=== PATIENT | male | born 1960 | race Caucasian/White ===

== ENCOUNTER 2020-06-13 22:26 | Observation (INO) | payer BC, SELFPAY ==
[2020-06-13 22:28] VITALS: BP 200/149; PULSE 102; RESP 18; TEMP 36.6; O2SAT 96; BMI 26.0
--- NOTE | 2020-06-13 22:44 | XRR_ITS ---
PROCEDURE INFORMATION: Exam: XR Chest, 1 View Exam date and time: 06/13/2020 10:47 PM Age: 60 years old Clinical indication: Chest pain; Patient HX: PT has numbness on left side of abdomen, leg, and arm x 1 day. Chest discomfort. TECHNIQUE: Imaging protocol: XR of the chest Views: 1 view. COMPARISON: No relevant prior studies available. FINDINGS: Lungs: No consolidation. Pleural space: No pleural effusion. No pneumothorax. Heart/Mediastinum: No cardiomegaly. Bones/joints: Unremarkable. XR/XR chest 1V portable [id number] IMPRESSION: No acute cardiopulmonary disease demonstrated.
--- NOTE | 2020-06-13 22:44 | CTR_ITS ---
PROCEDURE INFORMATION: Exam: CT Head Without Contrast Exam date and time: 06/13/2020 10:56 PM Age: 60 years old Clinical indication: Numbness / parasthesia; Patient HX: Numbness to left side of body. ; Additional info: CVA symptoms TECHNIQUE: Imaging protocol: Computed tomography of the head without contrast. Radiation optimization: All CT scans at this facility use at least one of these dose optimization techniques: automated exposure control; mA and/or kV adjustment per patient size (includes targeted exams where dose is matched to clinical indication); or iterative reconstruction. COMPARISON: No relevant prior studies available. RADIATION DOSE METRICS: Total DLP (mGy-cm): 775.58 FINDINGS: Brain: Mild parenchymal volume loss noted. No significant white matter disease demonstrated. No parenchymal edema identified. No intracranial hemorrhage noted. Cerebral ventricles: The ventricles are proportional to the sulci. No hydrocephalus is noted. Bones/joints: Unremarkable. No acute fracture. Paranasal sinuses: Small air-fluid level left maxillary sinus. Mastoid air cells: The mastoid air cells are clear bilaterally. Soft tissues: The soft tissues appear unremarkable. CT/CT head wo con* [id number] IMPRESSION: 1. No acute intracranial abnormality demonstrated. 2. Small air-fluid level left maxillary sinus. Radiation Dose CTDIVOL = (mGy): DLP = 775.58 (mGy-cm)
--- NOTE | 2020-06-13 22:45 | ECG_ITS ---
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 Measurements Intervals [place] Rate: 101 P: 47 ME: 200 QRS: -55 QRSD: 81 T: 44 QT: 343 QTc: 446 Interpretive Statements SINUS TACHYCARDIA LEFT AXIS DEVIATION [QRS AXIS < -30] No previous ECG available for comparison Electronically Signed On 06-14-2020 8:37:49 PARALEGAL SPECIALIST by Mary Ibrahim M.D. [id number] f
[2020-06-13 22:46] VITALS: PULSE 99; RESP 25; O2SAT 96
[2020-06-13 22:56] LABS: Basophils % 0.4 %; Eosinophils # 0.2 10^3/uL (0.0-0.8); Eosinophils % 2.4 %; Hematocrit 45.8 % (42.0-52.0); Hemoglobin 15.9 g/dL (11.7-16.6); Lymphocytes # 3.1 10^3/uL (0.8-4.8); Mean Corpuscular HGB Conc 34.7 g/dL (30.0-36.0); Mean Corpuscular Hemoglobin 30.5 pg (28.0-34.0); Mean Corpuscular Volume 87.7 fL (80-94); Mean Platelet Volume 9.2 fL (7.4-10.4); Monocytes # 0.6 10^3/uL (0.2-0.9); Monocytes % 7.4 %; Neutrophils # 3.68 10^3/uL (1.8-7.7); Neutrophils % 48.5 %; Nucleated Red Blood Cells % 0 %; Platelet Count 181 10^3/cmm (130-400); Red Blood Count 5.22 10^6/uL (4.1-5.3); Red Cell Distribution Width 12.1 % (12.1-15.1); White Blood Count 7.6 10^3/uL (4.0-10.0)
[2020-06-13] MEDS: ondansetron 2 mg/ML SDV 2 mL 4 MG IVP (23:00)
[2020-06-13] MEDS: sodium chloride 0.9% 1,000 ML 100 ML IV (23:04)
--- NOTE | 2020-06-13 23:08 | ED_ITS ---
HPI - Neuro Symptoms/Deficit General: Chief Complaint: Neuro Symptoms/Deficit Stated Complaint: numbness on left side Time Seen by Provider: 06/13/20 22:36 Source: patient Mode of arrival: ambulatory Limitations: no limitations History of Present Illness: HPI Narrative: Loi is a very nice 60-year-old male who comes in complaining of numbness on the left side of his body that has been present since awakening. Patient states he went to sleep last night in his normal state of health. He denies any chronic medical problems such as hypertension, hyperlipidemia, diabetes or otherwise. He states he woke up and felt numb on his left side specifically his left arm and left side of his abdomen. As the day has gone on he is noticed numbness in his left leg and left face as well. His symptoms have been intermittent except for his left arm and left side which have been constant throughout the day. He denies any weakness, vision problems, trouble with speech, troubles with balance or with walking. Patient denies having anything similar to this in the past. He states at times when he walks he feels like his leg will get less numb but otherwise he denies any other exacerbating or alleviating factors. Patient was concerned he may be having a stroke because of this he came in. Associated symptoms: Deny chest pain, diaphoresis, headache(s), malaise, nausea, syncope, vertigo or vomiting Review of Systems Const: Denies: fever(s), chills, body aches, fatigue, malaise or diaphoresis Eyes: Denies: change in vision, blurry vision, photophobia, eye discomfort, eye discharge, eye redness or yellow eyes ENMT: Denies: throat pain, odynophagia, hoarseness, swelling of lips/tongue, ear or mastoid pain, ear discharge, change in hearing or nasal discharge Card: Denies: chest pain, palpitations, irregular heart rhythm, edema, lightheadedness, syncope, pre-syncope, dyspnea on exertion or orthopnea Resp: Denies: dyspnea, productive cough, non-productive cough, wheezing, hemoptysis or chest congestion GI: Denies: abdominal pain, nausea, vomiting, hematemesis, coffee ground emesis, heartburn, diarrhea, constipation, GI cramping, hematochezia or melena : Denies: flank pain, dysuria, urinary frequency, urinary urgency or hematuria Musc: Denies: neck pain, back pain, extremity pain, extremity swelling, joint pain, joint swelling, joint redness, joint warmth or joint stiffness Skin/Breast: Denies: rash, pruritus, erythema, skin pain or skin tenderness Neuro: Reports: numbness in extremities; Denies: headache(s), weakness in extremities, sensory changes, lack of coordination, difficulty walking, dizziness, vertigo, confusion, Slurred speech present or seizure-like activity Daniel/Lymph: Denies: easy bruising, easy bleeding, petechiae, purpura or enlarged lymph nodes All/Imm: Denies: urticaria, throat swelling, tongue swelling, facial swelling or acute wheezing PFSH ED PFSH: Medical History (Updated 06/14/20 @ 02:32 by Kizzy Wooten MD) No pertinent past medical history Sleep apnea Surgical History (Updated 06/14/20 @ 02:32 by Kizzy Wooten MD) H/O hand surgery H/O knee surgery Family History (Updated 06/13/20 @ 23:21 by Adriana Byrne) Other CAD (coronary artery disease) Lung disease Social History (Updated 06/13/20 @ 23:22 by Adriana Byrne) Smoking and tobacco status: never smoked Alcohol intake: never Substance/Drug Use: never NIH stroke score NIHSS: Level Of Consciousness - 1a: 0 Level Of Consciousness Questions - 1b: Both Correct Level Of Consciousness Commands - 1c: Both Correct Best Gaze - 2: Normal Visual Basilio - 3: No Visual Loss Facial Palsy - 4: Normal Motor Arm Right - 5: No Drift Motor Arm Left - 5: No Drift Motor Leg Right - 6: No Drift Motor Leg Left - 6: No Drift Limb Ataxia - 7: Absent Sensory - 8: Mild To Moderate Loss Best Language - 9: No Aphasia Dysarthia - 10: Normal Extinction And Inattention - 11: 0 Score: Total Score: 1 Physical Exam Const: COMMON NORMALS: no acute distress, patient oriented x3, no limitations and alert GENERAL APPEARANCE: cooperative HENMT: COMMON NORMALS: normocephalic, atraumatic, external ears normal, EAC's normal and Normal external nose present HEAD & SCALP: normal to inspection, normocephalic and atraumatic FACE & SINUS: normal facial exam and face symmetric NOSE: Normal external nose present and Normal nares present EXTERNAL EAR: Yes external ears normal EXTERNAL AUDITORY CANAL: EAC's normal MOUTH: Normal oral and palatal mucosa present, lip normal and tongue normal Eye: COMMON NORMALS: Equal, round and reactive pupils present and conjunctivae normal GENERAL EYE: appearance normal, both eyes and all related structures ALIGNMENT: Yes alignment normal PERIORBITAL: periorbital findings normal EYELID: eyelids normal CONJUNCTIVA: Yes conjunctivae normal SCLERA: sclerae normal PUPIL: Yes Equal, round and reactive pupils present Neck/C-Spine: COMMON NORMALS: full ROM, no lymphadenopathy, supple, no meningeal signs and no JVD GENERAL: Yes normal visual inspection and Yes trachea midline Chest: COMMONS NORMALS: normal inspection of the chest and normal palpation of entire chest wall Resp: COMMON NORMALS: normal respiratory effort, No retractions, No use of accessory muscles and clear to auscultation bilaterally EFFORT & INSPECTION: Yes able to speak in complete sentences and Yes symmetric chest movement AUSCULTATION: clear to auscultation bilaterally, no crackles, no rales, no rhonchi and no wheezes Cardio: COMMON NORMALS: no JVD, regular rate, regular rhythm, S1 normal heart sound present and S2 normal heart sound present RATE: regular rate RHYTHM: regular rhythm HEART SOUNDS: S1 normal heart sound present, S2 normal heart sound present, no click, no gallops, no murmurs and no rubs GI: COMMON NORMALS: Soft to palpation and No hepatosplenomegaly present PALPATION: Yes Soft to palpation, No Tenderness to palpation present (GI), No Guarding due to palpation present (GI), No Rigid due to palpation, Yes No hepatosplenomegaly present, No Hernia present, No Palpable mass present and No Pulsatile mass present : COMMON NORMALS: Yes no CVA tenderness BLADDER/KIDNEY EXAM: Yes no CVA tenderness Back/Pelvis: COMMON NORMALS: no CVA tenderness, thoracic and lumbar spine normal to inspection, no thoracic nor lumbar tenderness and thoraco-lumbar ROM normal Extremity: COMMON NORMALS: normal to inspection, full ROM, capillary refill normal, no joint enlargement, no clubbing, cyanosis or edema and no calf tenderness Neuro: COMMON NORMALS: patient oriented x3, CN's II-XII intact bilaterally, moves all extremities and no focal motor deficits SENSORIUM/ORIENTATION: Yes alert MENINGEAL SIGNS: Yes no meningeal signs SPEECH: speech normal Skin: COMMON NORMALS: no rashes or lesions noted, turgor normal, no jaundice, no petechiae and no mottling GENERAL SKIN EXAM: no rashes or lesions noted and turgor normal Course Vital Signs: Vital signs: Vital Signs Temperature 97.9 F 06/13/20 22:28 Pulse Rate 78 06/14/20 01:30 Respiratory Rate 12 06/14/20 01:30 Blood Pressure 178/98 06/14/20 01:30 Pulse Oximetry 95 06/14/20 01:30 MDM - Neuro Symptoms/Deficit MDM Narrative: Medical decision making narrative: Mr. Vaz is a 60-year-old male who comes in with the complaint of left-sided numbness. His NIH stroke scale is 1. CT is negative. Patient is at high risk for progression of his symptoms. The case was endorsed to Dr. Sears he is agreeable to further evaluation and care. Patient was not a candidate for TPA or intervention due to his low NIH stroke scale and time of presentation. Lab Data: Attestation: I reviewed the patient's lab results. Labs: Lab Results 06/13/20 06/13/20 06/13/20 Range/Units 22:45 22:45 22:45 WBC 7.6 (4.0-10.0) 10^3/ uL RBC 5.22 (4.1-5.3) 10^6/u L Hgb 15.9 (11.7-16.6) g/dL Hct 45.8 (42.0-52.0) % MCV 87.7 (80-94) fL MCH 30.5 (28.0-34.0) pg MCHC 34.7 (30.0-36.0) g/dL RDW 12.1 (12.1-15.1) % Plt Count 181 (130-400) 10^3/c mm MPV 9.2 (7.4-10.4) fL Neut % (Auto) 48.5 % Lymph % (Auto) 41.0 % [place] % (Auto) 7.4 % Eos % (Auto) 2.4 % Baso % (Auto) 0.4 % Neut # (Auto) 3.68 (1.8-7.7) 10^3/u L Lymph # (Auto) 3.1 (0.8-4.8) 10^3/u L [place] # (Auto) 0.6 (0.2-0.9) 10^3/u L Eos # (Auto) 0.2 (0.0-0.8) 10^3/u L Baso # (Auto) 0.0 (0.0-0.1) 10^3/u L Nucleated RBC % (a uto) 0 % Nucleated RBCs # 0.0 /100WBC Sodium 136 (136-145) mmol/L Potassium 3.7 (3.5-5.1) mmol/L Chloride 100 (98-107) mmol/L Carbon Dioxide 26 (22-29) mmol/L Anion Gap 13.7 (5-19) BUN 14 (6-20) mg/dL Creatinine 1.0 (0.7-1.2) mg/dL GFR Calculation 76.5 L (90-130) mL/min Glucose 237 H (65-115) mg/dL Calculated Osmolal ity 290 (285-295) mOsm/k g Calcium 9.5 (8.5-10.5) mg/dL Magnesium 2.1 (1.7-2.3) mg/dL Total Bilirubin 0.7 (0.15-1.2) mg/dL AST 34 (0-40) U/L ALT 62 H (0-41) U/L Alkaline Phosphata se 106 (40-130) IU/L Troponin T Baselin e 9 (0-15) ng/L Troponin T 120 Min [place] (0-15) ng/L Delta Troponin T (0-10) ABS# Total Protein 7.2 (6.6-8.7) g/dL Albumin 4.6 (3.5-5.2) g/dL Globulin 2.6 (1.3-4.6) g/dL Urine Color (Yellow) Urine Appearance (CLEAR) Urine pH (5-7) Ur Specific Gravit y (1.005-1.030) Urine Protein (Negative) Urine Glucose (UA) (Normal) Urine Ketones (Negative) Urine Blood (Negative) Urine Nitrate (Negative) Urine Bilirubin (Negative) Urine Urobilinogen (Negative) mg/dL Ur Leukocyte Irene ase (Negative) 06/14/20 06/14/20 Range/Units 00:12 00:55 WBC (4.0-10.0) 10^3/ uL RBC (4.1-5.3) 10^6/u L Hgb (11.7-16.6) g/dL Hct (42.0-52.0) % MCV (80-94) fL MCH (28.0-34.0) pg MCHC (30.0-36.0) g/dL RDW (12.1-15.1) % Plt Count (130-400) 10^3/c mm MPV (7.4-10.4) fL Neut % (Auto) % Lymph % (Auto) % [place] % (Auto) % Eos % (Auto) % Baso % (Auto) % Neut # (Auto) (1.8-7.7) 10^3/u L Lymph # (Auto) (0.8-4.8) 10^3/u L [place] # (Auto) (0.2-0.9) 10^3/u L Eos # (Auto) (0.0-0.8) 10^3/u L Baso # (Auto) (0.0-0.1) 10^3/u L Nucleated RBC % (a uto) % Nucleated RBCs # /100WBC Sodium (136-145) mmol/L Potassium (3.5-5.1) mmol/L Chloride (98-107) mmol/L Carbon Dioxide (22-29) mmol/L Anion Gap (5-19) BUN (6-20) mg/dL Creatinine (0.7-1.2) mg/dL GFR Calculation (90-130) mL/min Glucose (65-115) mg/dL Calculated Osmolal ity (285-295) mOsm/k g Calcium (8.5-10.5) mg/dL Magnesium (1.7-2.3) mg/dL Total Bilirubin (0.15-1.2) mg/dL AST (0-40) U/L ALT (0-41) U/L Alkaline Phosphata se (40-130) IU/L Troponin T Baselin e (0-15) ng/L Troponin T 120 Min [place] 8.26 (0-15) ng/L Delta Troponin T -0.74 L (0-10) ABS# Total Protein (6.6-8.7) g/dL Albumin (3.5-5.2) g/dL Globulin (1.3-4.6) g/dL Urine Color Yellow (Yellow) Urine Appearance Clear (CLEAR) Urine pH 7 (5-7) Ur Specific Gravit y 1.005 (1.005-1.030) Urine Protein Neg (Negative) Urine Glucose (UA) 4+ H (Normal) Urine Ketones Negative (Negative) Urine Blood Neg (Negative) Urine Nitrate Negative (Negative) Urine Bilirubin Neg (Negative) Urine Urobilinogen Norm (Negative) mg/dL Ur Leukocyte Irene ase Negative (Negative) Imaging Data^: CT Head: Attestation: I personally reviewed and interpreted this imaging study as follows: Radiologist's impression: [address] [address] [address] Scan Report Signed Patient: Miguel Vaz #: [id number] : 1Acct#:[id number] Age/Sex: 60 / MADM Date: 06/13/20 Loc: ERRoom/Bed: Attending Dr: Ordering Provider/Ordering MD: Adriana Byrne DO Date of Service: 06/13/20 Procedure(s): CT head wo con* [id number] Accession Number(s): [id number] Report Number: [id number] PROCEDURE INFORMATION: Exam: CT Head Without Contrast Exam date and time: 06/13/2020 10:56 PM Age: 60 years old Clinical indication: Numbness / parasthesia; Patient HX: Numbness to left side of body. ; Additional info: CVA symptoms TECHNIQUE: Imaging protocol: Computed tomography of the head without contrast. Radiation optimization: All CT scans at this facility use at least one of these dose optimization techniques: automated exposure control; mA and/or kV adjustment per patient size (includes targeted exams where dose is matched to clinical indication); or iterative reconstruction. COMPARISON: No relevant prior studies available. RADIATION DOSE METRICS: Total DLP (mGy-cm): 775.58 FINDINGS: Brain: Mild parenchymal volume loss noted. No significant white matter disease demonstrated. No parenchymal edema identified. No intracranial hemorrhage noted. Cerebral ventricles: The ventricles are proportional to the sulci. No hydrocephalus is noted. Bones/joints: Unremarkable. No acute fracture. Paranasal sinuses: Small air-fluid level left maxillary sinus. Mastoid air cells: The mastoid air cells are clear bilaterally. Soft tissues: The soft tissues appear unremarkable. CT/CT head wo con* [id number] IMPRESSION: 1. No acute intracranial abnormality demonstrated. 2. Small air-fluid level left maxillary sinus. Radiation Dose CTDIVOL = (mGy): DLP = 775.58 (mGy-cm) Dictated By:Vicente Morrissey MD Signed By:Vicente Morrissey MDSigned Date/Time:06/13/202315 DD/ 14 EKG Data^: EKG 1: Attestation: I personally reviewed and interpreted this EKG as follows: EKG interpretation date: 06/14/20 EKG interpretation time: 22:42 Interpretation: Sinus tachycardia 101 beats a minute, left axis deviation, no blocks, normal intervals, no acute ST or T wave changes. EKG 2: Attestation: I personally reviewed and interpreted this EKG as follows: EKG interpretation date: 06/14/20 EKG interpretation time: 00:54 Interpretation: Normal sinus rhythm 70 beats a minute, left axis deviation, no blocks, normal intervals, no acute ST-T wave findings. Discharge Plan Discharge Patient Disposition: Placed in Observation Admit Provider: Kizzy Wooten Clinical Impression: Cerebrovascular accident Qualifiers: CVA mechanism: unspecified Qualified Code(s): I63.9 - Cerebral infarction, unspecified Coding Level of Care Code ED Scheduling Manager for [facility] Fwd Exam Comprehensive
[2020-06-13 23:12] LABS: Alanine Aminotransferase 62 U/L (0-41); Albumin Level 4.6 g/dL (3.5-5.2); Alkaline Phosphatase 106 IU/L (40-130); Anion Gap 13.7 (5-19); Aspartate Amino Transferase 34 U/L (0-40); Blood Urea Nitrogen 14 mg/dL (6-20); Calcium 9.5 mg/dL (8.5-10.5); Carbon Dioxide 26 mmol/L (22-29); Chloride 100 mmol/L (98-107); Globulin 2.6 g/dL (1.3-4.6); Glomerular Filtration Rate 76.5 mL/min (90-130); Glucose 237 mg/dL (65-115); Magnesium 2.1 mg/dL (1.7-2.3); Osmolality Calculated 290 mOsm/kg (285-295); Potassium 3.7 mmol/L (3.5-5.1); Sodium 136 mmol/L (136-145); Total Bilirubin 0.7 mg/dL (0.15-1.2); Total Protein 7.2 g/dL (6.6-8.7)
[2020-06-13 23:14] LABS: Troponin(5th) Baseline 9 ng/L (0-15)
[2020-06-13 23:23] VITALS: BP 188/96; PULSE 82; O2SAT 95
[2020-06-14] VITALS (11 sets, daily range): BP systolic 135–200; BP diastolic 87–103; PULSE 66–79; RESP 11–18; TEMP 36.5–37.1; O2SAT 93–97
[2020-06-14] MEDS: aspirin 325 mg Tablet PO (00:44)
--- NOTE | 2020-06-14 00:45 | ECG_ITS ---
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 Measurements Intervals [place] Rate: 70 P: 39 NE: 179 QRS: -39 QRSD: 104 T: 83 QT: 385 QTc: 418 Interpretive Statements SINUS RHYTHM LEFT AXIS DEVIATION [QRS AXIS < -30] PATTERN CONSISTENT WITH PULMONARY DISEASE NONSPECIFIC T-WAVE ABNORMALITY Compared to ECG 06/13/2020 22:42:40 T-wave abnormality now present Sinus tachycardia no longer present Electronically Signed On 06-14-2020 8:43:28 RAILROAD DESIGN CONSULTANT by Mary Ibrahim M.D. [id number]
[2020-06-14 01:27] LABS: Add Urine Microscopic? NO
[2020-06-14 01:30] LABS: Bilirubin Urine Neg (Negative); Blood Urine Neg (Negative); Glucose Urine UA 4+ (Normal); Ketones Urine Negative (Negative); Leukocyte Esterase Urine Negative (Negative); Nitrate Urine Negative (Negative); Protein Urine Neg (Negative); Specific Gravity, Urine 1.005 (1.005-1.030); Urine Appearance Clear (CLEAR); Urine Color Yellow (Yellow); Urobilinogen Urine Norm (Negative); pH Urine 7 (5-7)
--- NOTE | 2020-06-14 01:39 | CTR_ITS ---
PROCEDURE INFORMATION: Exam: CT Angiography Head With Contrast Exam date and time: 06/14/2020 1:41 AM Age: 60 years old Clinical indication: Weakness; Patient HX: Numbness to left side of body; Additional info: CVA TECHNIQUE: Imaging protocol: Computed tomography angiography of the head with intravenous contrast. 3D rendering (Not supervised by radiologist): MIP and/or 3D reconstructed images were created by the technologist. Radiation optimization: All CT scans at this facility use at least one of these dose optimization techniques: automated exposure control; mA and/or kV adjustment per patient size (includes targeted exams where dose is matched to clinical indication); or iterative reconstruction. Contrast material: OMNI 350; Contrast volume: 95 ml; Contrast route: INTRAVENOUS (IV); COMPARISON: CT head wo con* [id number] 2020-06-13 22:58 RADIATION DOSE METRICS: Total DLP (mGy-cm): 2358.6 FINDINGS: ANTERIOR CIRCULATION: Right internal carotid artery: Unremarkable. Intracranial segment is patent with no significant stenosis. No aneurysm. Right middle cerebral artery: Unremarkable. No occlusion or significant stenosis. No aneurysm. Right anterior cerebral artery: Unremarkable. No occlusion or significant stenosis. No aneurysm. Left internal carotid artery: Unremarkable. Intracranial segment is patent with no significant stenosis. No aneurysm. Left middle cerebral artery: Unremarkable. No occlusion or significant stenosis. No aneurysm. Left anterior cerebral artery: Unremarkable. No occlusion or significant stenosis. No aneurysm. POSTERIOR CIRCULATION: Right vertebral artery: Unremarkable. No occlusion or significant stenosis. No aneurysm. Left vertebral artery: Unremarkable. No occlusion or significant stenosis. No aneurysm. Basilar artery: Unremarkable. No occlusion or significant stenosis. No aneurysm. Right posterior cerebral artery: Unremarkable. No occlusion or significant stenosis. No aneurysm. Left posterior cerebral artery: Unremarkable. No occlusion or significant stenosis. No aneurysm. Brain: No definite mass, mass effect, or midline shift. Cerebral ventricles: No ventriculomegaly. Paranasal sinuses: Mild scattered paranasal sinus mucosal thickening and secretions. Bones/joints: Unremarkable. No acute fracture. Soft tissues: Unremarkable. IMPRESSION: No large vessel stenosis or occlusion. PROCEDURE INFORMATION: Exam: CT Angiography Neck With Contrast Exam date and time: 06/14/2020 1:41 AM Age: 60 years old Clinical indication: Weakness; Patient HX: Numbness to left side of body; Additional info: CVA TECHNIQUE: Imaging protocol: Computed tomography angiography of the neck with intravenous contrast. 3D rendering (Not supervised by radiologist): MIP and/or 3D reconstructed images were created by the technologist. Radiation optimization: All CT scans at this facility use at least one of these dose optimization techniques: automated exposure control; mA and/or kV adjustment per patient size (includes targeted exams where dose is matched to clinical indication); or iterative reconstruction. Contrast material: OMNI 350; Contrast volume: 95 ml; Contrast route: INTRAVENOUS (IV); COMPARISON: CT head wo con* [id number] 2020-06-13 22:58 RADIATION DOSE METRICS: Total DLP (mGy-cm): 2358.6 FINDINGS: Right common carotid artery: Mild atherosclerotic plaque in the predominately distal right common carotid artery and the bifurcation. Right internal carotid artery: Mild atherosclerotic plaque in the carotid bulb and proximal right internal carotid artery with less than 50% stenosis by NASCET criteria. Right external carotid artery: No occlusion or stenosis of the origin. Right vertebral artery: No stenosis. No dissection or occlusion. Left common carotid artery: Mild atherosclerotic plaque in the predominately distal left common carotid artery and the bifurcation. Left internal carotid artery: Mild atherosclerotic plaque in the proximal left internal carotid artery and carotid bulb with less than 50% stenosis by NASCET criteria. Left external carotid artery: No occlusion or stenosis of the origin. Left vertebral artery: No stenosis. No dissection or occlusion. Bones/joints: Prominent degenerative disc and joint disease within the cervical spine with C3-C4 moderate central disc extrusion, and C4-C7 multilevel disc osteophyte complexes with moderate to severe stenosis. Soft tissues: Normal. No significant soft tissue swelling. CT/CT angio headneck* [id number] IMPRESSION: 1. Mild bilateral proximal ICA atherosclerotic disease with less than 50% stenosis. 2. Prominent degenerative disc and joint disease within the cervical spine with C3-C4 moderate central disc extrusion, and C4-C7 multilevel disc osteophyte complexes with moderate to severe stenosis. REFERENCES: NASCET CRITERIA. The degree of internal carotid artery stenosis is based on NASCET criteria. Normal is no stenosis. Mild is less than 50% stenosis. Moderate is 50-69% stenosis. Severe is 70% to 99% stenosis. Total occlusion is no detectable patent lumen. Radiation Dose CTDIVOL = (mGy): DLP = 2358.6~2358.6 (mGy-cm)
--- NOTE | 2020-06-14 01:40 | P.HP_ITS ---
Providers/Chief Complaint Chief Complaint: numbness on left side History of Present Illness Loi Vaz is a 60 year old male without significant past medical history presented with chief complaint of numbness. Patient is stating that he went to sleep without any symptoms and when he woke up around 6 AM he started experiencing numbness left side of his abdomen, which progressed towards his arm left side of the face and leg, it persisted until this evening when he decided to come to the hospital for further evaluation. He is denying chest pain, shortness of breath, fever, nausea, vomiting, dysuria previous history of stroke, [place], heart failure. No family history of stroke. He is only describing symptoms as numbness, he did not notice any weakness slurring of speech facial asymmetry, falls change in his gait, dizziness. Diagnosis in the ER revealed hypertension, CT head unremarkable, I have requested CTA head and neck NIH score 1 for paresthesias of left arm, chest x-ray unremarkable CBC BMP unremarkable requested B12 level EKG showing sinus rhythm left axis deviation, LVH Review of Systems Const: Denies: fever(s) or chills Eyes: Denies: change in vision ENMT: Denies: throat pain Card: Denies: chest pain Resp: Denies: dyspnea GI: Denies: abdominal pain : Denies: flank pain Musc: Denies: neck pain Skin/Breast: Denies: rash Neuro: Reports: sensory changes Psych: Denies: anxiety Endo: Denies: polyuria Daniel/Lymph: Denies: easy bruising All/Imm: Denies: urticaria Medications/Allergies Allergies Allergy/AdvReac Type Severity Reaction Status Date / Time No Known Allergies Allergy Verified 06/14/20 00:42 PFSH Acute PFSH: Medical History (Updated 06/14/20 @ 02:32 by Kizzy Wooten MD) No pertinent past medical history Sleep apnea Surgical History (Updated 06/14/20 @ 02:32 by Kizzy Wooten MD) H/O hand surgery H/O knee surgery Family History (Updated 06/13/20 @ 23:21 by Adriana Byrne) Other CAD (coronary artery disease) Lung disease Social History (Updated 06/13/20 @ 23:22 by Adriana Byrne) Smoking and tobacco status: never smoked Alcohol intake: never Substance/Drug Use: never Vitals/I&O/Wt Last Vital Signs Temp 97.9 F 06/13/20 22:28 Pulse 78 06/14/20 01:30 Resp 12 06/14/20 01:30 BP 178/98 06/14/20 01:30 Pulse Ox 95 06/14/20 01:30 Weight last 48 hrs Weight 84.822 kg Physical Exam Narrative: EXAM NARRATIVE: Pleasant middle-age male Currently laying comfortably in his bed NIH score 1 for paresthesia of left arm No facial asymmetry no cerebellar signs No neurological deficit Motor strength 4/5 all extremities EOMI, PERRLA S1, S2 sinus rhythm No signs of heart failure Abdomen soft distended bowel sound present No acute restaurant distress bilateral breath sounds without adventitious rhonchi or crackles Appropriate mood and affect Supple neck, no carotid bruit noted, Lower extremity no edema gangrene ulcer No skin ulcers Data : 06/13/20 22:45 06/13/20 22:45 A&P Assessment and plan (1) TIA (transient ischemic attack): TIA, ABCD2 score 3 because of duration of symptoms he is scoring high No history of diabetes, currently blood pressure is 178/98 mmHg, allow permissive hypertension Dual antiplatelet therapy along high-dose statins, awaiting CTA head and neck results, CT head unremarkable EKG is not showing any atrial fibrillation or atrial flutter, sinus rhythm Dual antiplatelet therapy for at least 21 days, follow-up with PCP and neurologist No need of speech evaluation or physical therapy because of low NIH score only symptoms of paresthesia, would obtain lipid panel Status: Acute Additional A&P Information Sleep apnea: Continue CPAP Full code Cardiac diet DVT prophylaxis Lovenox Attestations Medical Necessity Statement*: Anticipating discharge in in less than 48 hours, awaiting CTA head and neck report, started on dual antibiotic therapy for TIA Time Spent in Patient Care: (>than 50% of time spent in counselling and/or direct pt care on unit) . 45mins Coding Level of Care Code Acute Supervisor Waterproofing for Moi Tellez Diagnoses TIA (transient ischemic attack) G45.9
[2020-06-14 01:45] LABS: Troponin 5 2HR 8.26 ng/L (0-15)
[2020-06-14 01:47] LABS: Troponin 5 2HR Delta -0.74 ABS# (0-10)
[2020-06-14] MEDS: iohexol 350 mg/mL 100 mL Btl IV (01:54)
[2020-06-14] MEDS: enoxaparin 40 mg/0.4 mL Syringe SUBCUT (03:32)
--- NOTE | 2020-06-14 04:45 | ECG_ITS ---
[facility] Test Date: 2020-06-14 Pat Name: Loi Vaz Department: Room: 276 Gender: Male Dance Entertainer: CANDIS : 1960 Requested By: Adriana Quinones Order Number: [id number] Jessica MD: Mary Ibrahim M.D. Measurements Intervals [place] Rate: 68 P: 28 MN: 190 QRS: -31 QRSD: 87 T: 76 QT: 405 QTc: 431 Interpretive Statements SINUS RHYTHM MARKED LEFT AXIS DEVIATION [QRS AXIS < -30] NONSPECIFIC T-WAVE ABNORMALITY Compared to ECG 06/14/2020 00:54:01 No significant changes Electronically Signed On 06-14-2020 8:42:30 PLANNING INTERN by Mary Ibrahim M.D. [id number]
[2020-06-14] MEDS: clopidogrel 75 mg Tablet PO (08:50)
[2020-06-14] MEDS: aspirin 81 mg EC Tablet PO (08:50)
--- NOTE | 2020-06-14 09:38 | USCV_ITS ---
Loi Vaz Age: 60 Gender: M : 1960 Exam Date: 06/14/2020 15:00 Ordering Phys: Sukhjinder Douglas MD Technologist: Bree Morin [place]am Location[place] [facility] [place] Indication: Sroke like symptoms BP: 151 / 93 HR: 75 Rhythm: Sinus Technical Quality: Adequate MEASUREMENTS (Male / Female) Normal Values 2D ECHO LV Diastolic Diameter PLAX 4.4 cm 4.2 - 5.9 / 3.9 - 5.3 cm LV Systolic Diameter PLAX 2.3 cm IVS Diastolic Thickness 1.1 cm 0.6 - 1.0 / 0.6 - 0.9 cm IVS Systolic Thickness 2.0 cm LVPW Diastolic Thickness 1.3 cm 0.6 - 1.0 / 0.6 - 0.9 cm LVPW Systolic Thickness 2.0 cm LVOT Diameter 2.1 cm LV Ejection Fraction 2D Teich 79.2 % LV Ejection Fraction MOD 2C 74.7 % LV Ejection Fraction 2C AL 80.7 % LA Diameter 3.8 cm LA Width 2.5 cm LA Height 4.8 cm RA Width 3.1 cm RA Height 4.0 cm Aorta at Sinotubular Diameter 2.9 cm M-MODE LV Diastolic Diameter MM 5.0 cm 4.2 - 5.9 / 3.9 - 5.3 cm LV Systolic Diameter MM 3.0 cm LV Ejection Fraction MM Teich 71.4 % IVS Diastolic Thickness MM 0.8 cm 0.6 - 1.0 / 0.6 - 0.9 cm IVS Systolic Thickness MM 1.6 cm LVPW Diastolic Thickness MM 1.2 cm 0.6 - 1.0 / 0.6 - 0.9 cm LVPW Systolic Thickness MM 2.0 cm Aortic Annulus Diameter 3.1 cm LA Ao Ratio MM 1.2 MV E Point Septal Separation 0.4 cm DOPPLER AV Peak Velocity 92.0 cm/s LVOT Peak Velocity 75.0 cm/s AV Area Cont Eq vti 3.5 cm squared AV Area Cont Eq pk 2.8 cm squared MV Peak Velocity 94.0 cm/s MV Area PHT 2.9 cm squared Mitral E to A Ratio 0.5 MV E' Velocity 27.5 cm/s Mitral E to MV E' Ratio 7.3 Mitral E to LV E' Lateral Ratio 5.9 Mitral E to LV E' Septal Ratio 9.5 TR Peak Velocity 63.0 cm/s TR Peak Gradient 1.6 mmHg Right Atrial Pressure 3.0 mmHg Pulmonary Artery Systolic Pressu 4.6 mmHg PV Peak Velocity 101.0 cm/s RV Acceleration Time 0.1 s RV Ejection Time 0.2 s RV AcT/ET 0.3 FINDINGS Left Ventricle Normal left ventricular size, systolic function and wall thickness, with no regional wall motion abnormalities. Left ventricular ejection fraction is estimated at 60 %. Grade I diastolic dysfunction (abnormal relaxation filling pattern), normal to mildly elevated filling pressures. Right Ventricle Normal right ventricular size and systolic function. Right ventricular systolic pressure 4.6 mmHg. Right Atrium Normal right atrial size. Left Atrium Normal left atrial size. Mitral Valve Structurally normal mitral valve. No mitral valve stenosis. Trace mitral valve regurgitation. Aortic Valve Structurally normal trileaflet aortic valve. No aortic valve stenosis. No aortic valve regurgitation. Tricuspid Valve Structurally normal tricuspid valve. No tricuspid valve stenosis. Trace tricuspid valve regurgitation. Pulmonic Valve Pulmonic valve not well visualized. No pulmonary valve stenosis. Trace pulmonary valve regurgitation. Pericardium No pericardial effusion. Aorta Normal size aortic root and proximal ascending aorta. CONCLUSIONS 1. Normal left ventricular size, systolic function and wall thickness, with no regional wall motion abnormalities. Left ventricular ejection fraction is estimated at 60 %. Grade I diastolic dysfunction (abnormal relaxation filling pattern), normal to mildly elevated filling pressures. 2. Normal right ventricular size and systolic function. 3. No significant valvular abnormality. 4. There is no cardioembolic source of stroke, however complete assessment of left atrium and left atrial appendage cannot be made based on this study. NIKKY is recommended if clinically indicated. Mary Ibrahim MD (Electronically Signed) Final Date: 14 June 2020 19:12 S
[2020-06-14 11:20] LABS: Estmated Average Glucose 180; Hemoglobin A1C 7.9 % (4.0-6.0)
--- NOTE | 2020-06-14 11:34 | PM.PN ---
Subjective Subjective: Interval history: Patient reports that he continues to have left-sided numbness but denies any motor deficit. Denies previous history of heart disease or stroke. Denies being diabetic. Reports taking aspirin occasionally for headaches. Patient denies heart palpitations. Vitals/I&O/Wt Last Vital Signs Temp 98.8 F 06/14/20 07:34 Pulse 69 06/14/20 07:34 Resp 18 06/14/20 07:34 BP 151/93 06/14/20 07:34 Pulse Ox 95 06/14/20 07:34 06/13/20 06/14/20 06/14/20 22:59 06:59 14:59 Intake Total 240 / 240 Output Total 525 / 525 475 / 475 Balance -525 / -525 -235 / -235 Weight last 48 hrs Weight 84.822 kg Physical Exam Const: COMMON NORMALS: no acute distress and patient oriented x3 Resp: COMMON NORMALS: normal respiratory effort and clear to auscultation bilaterally AUSCULTATION: clear to auscultation bilaterally Cardio: COMMON NORMALS: regular rate, regular rhythm and S2 normal heart sound present RATE: regular rate RHYTHM: regular rhythm HEART SOUNDS: S2 normal heart sound present OTHER: No lower extremity edema GI: COMMON NORMALS: Normal to inspection, nondistended, normoactive bowel sounds present, Soft to palpation and non-tender PALPATION: Yes Soft to palpation Neuro: COMMON NORMALS: patient oriented x3 and no focal motor deficits Data : 06/13/20 22:45 06/13/20 22:45 A&P Assessment and plan (1) TIA (transient ischemic attack): TIA, ABCD2 score 3 because of duration of symptoms he is scoring high No history of diabetes, currently blood pressure is 178/98 mmHg, allow permissive hypertension Dual antiplatelet therapy along high-dose statins, awaiting CTA head and neck results, CT head unremarkable EKG is not showing any atrial fibrillation or atrial flutter, sinus rhythm Dual antiplatelet therapy for at least 21 days, follow-up with PCP and neurologist No need of speech evaluation or physical therapy because of low NIH score only symptoms of paresthesia, would obtain lipid panel Status: Acute (2) Cervical radiculopathy due to degenerative joint disease of spine: This appears to be likely the cause of patient's symptoms although TIA cannot be completely ruled out. Status: Acute Additional A&P Information Sleep apnea: Continue CPAP Full code Cardiac diet DVT prophylaxis Lovenox PLAN: We will continue statin and aspirin but discontinue Plavix. Discussed with Dr. Bennett, orthopedic surgeon and he will see patient on Tuesday in his office. Have requested echocardiogram for further stroke evaluation. Attestations Medical Necessity Statement*: Patient with strokelike symptoms requires observation for monitoring, treatment and evaluation. Coding Level of Care Code Acute Endocrinology Specialist for Jorge Lg Latashad Diagnoses TIA (transient ischemic attack) G45.9 Cervical radiculopathy due to degenerative joint disease of spine M47.22
[2020-06-14 11:36] LABS: Chol HDL Ratio 6.68 mg/dL (1.0-5.00); Cholesterol 227 mg/dL (0-200); HDL Cholesterol 34 mg/dL (60-100); LDL Cholesterol Calculated 157 mg/dL (50-129); LDL HDL Ratio 4.62 RATIO (0.00-3.22); Triglycerides 182 mg/dL (0-150); Vitamin B12 529 pg/mL (232-1245)
--- NOTE | 2020-06-14 13:17 | PC.CHAP ---
Pastoral Care Encounter/Spiritual Assessment Type of Contact [] Declined pulpwood contractor visit [] Patient/Family/Request visit [] Outpatient visit [] Follow-up visit [] Physician referral [] Code/Alert [X] Routine visit [] Staff referral [] Actively dying [] Patient sleeping [] Family support [] [] Out of room [] Palliative care [] [] Receiving care in room [] Pre-surgical visit [] Trauma [] Long length of stay [] ICU visit [] Other: Relational/Emotional Strength [X] Patient feels connected with others/family/visitors/staff [] Distress [] Loneliness/isolation [] Abandonment Spirituality of Patient [] Person of Laura [] Attends Jew of their Laura [X] Believes in Prayer [] Reads Bible or Jew materials [] There are Spiritual issues to be addressed Certified Appliance Service Technician Interventions [X] Prayer [X] Active listening [] Non-anxious presence [] Spiritual/emotional support [] Crisis/trauma care [] Spiritual counseling [] Bereavement support [] Provided bereavement packet [] Provided Bible/devotional materials [] Provided toy/stuffed animal, coloring book to patient or family member [] Provided Communion [] Anointing/[place] [] Salvation [X] Completed spiritual assessment [] Other: Impact on Illness or Injury [] Angry [] Fearful [] Anxious [] Often cries [] Exhaustion [] Unable to work [] Unable to attend muslim [] Unable to walk/stand [] Unable to read [] Unable to drive [] Unable to eat/drink [] Unable to sleep [] Unable to be with family [] Patient intubated [] Other: Summary: Pt was pleasant and willing to visit but yet also somewhat reserved. Pt lives with his mother who plans to visit this afternoon. Pt accepted the offer of prayer. Time spent with patient: 5 - 10 mins
[2020-06-14] MEDS: atorvastatin 40 mg Tablet 80 MG PO (20:41)
[2020-06-15 04:00] VITALS: BP 155/99; PULSE 63; RESP 18; TEMP 36.8; O2SAT 95
[2020-06-15] MEDS: enoxaparin 40 mg/0.4 mL Syringe SUBCUT (04:03)
[2020-06-15 06:00] VITALS: PULSE 73
[2020-06-15 07:37] VITALS: BP 150/89; PULSE 60; RESP 20; TEMP 36.4; O2SAT 96
--- NOTE | 2020-06-15 08:30 | P.DS_ITS ---
Discharge Providers Date of Admission: 06/14/20 01:43 Date of Discharge: June 15, 2020 Attending Provider at Admission: Kizzy Wooten MD Attending Provider at Discharge: Sukhjinder Douglas MD Diagnoses at Discharge Discharge Diagnosis (1) TIA (transient ischemic attack): Status: Acute (2) Cervical radiculopathy due to degenerative joint disease of spine: Status: Acute Reason for Visit Reason for Visit: numbness on left side Hospital Course Hospital Course Patient presented with left-sided numbness and initially cerebrovascular accident was suspected and patient was further evaluated. His CT scan of the neck showed significant degenerative disc/joint disease with osteophyte complexes with moderate to severe stenosis. This felt likely to be the cause of patient's sensory deficit and I have discussed case with his Dr. Bennett who will see patient this coming Tuesday. Cerebrovascular accident cannot be completely ruled out therefore patient was started on 81 mg aspirin and statin. He had very mild bilateral proximal ICA atherosclerotic disease with less than 50% stenosis. Outpatient follow-up with Dr. Xavier will be requested. Patient was not interested in event monitor and reports that he will discuss with his primary care physician about it. This morning patient reports not worse to better . He shows no evidence of focal motor neurological deficit. His all extremities are very strong. He ambulates without any difficulty. He feels strong enough to be dismissed home. He denies shortness of breath or chest pain. Appetite and oral intake are good. Physical Exam Const: COMMON NORMALS: no acute distress and patient oriented x3 Resp: COMMON NORMALS: normal respiratory effort and clear to auscultation bilaterally AUSCULTATION: clear to auscultation bilaterally Cardio: COMMON NORMALS: regular rate, regular rhythm and S2 normal heart sound present RATE: regular rate RHYTHM: regular rhythm HEART SOUNDS: S2 normal heart sound present OTHER: No lower extremity edema GI: COMMON NORMALS: Normal to inspection, nondistended, normoactive bowel sounds present, Soft to palpation and non-tender PALPATION: Yes Soft to palpation Neuro: COMMON NORMALS: patient oriented x3 and no focal motor deficits Discharge Data Data Completed and Pending: Completed Studies During Hospitalization Category Date Time Status CT angio headneck * [id number] Urge nt Cat Scan 06/14/20 01:[address] head wo con* 7 0450 Stat Cat Scan 06/13/20 22:44 Completed XR chest 1V wendy ble [id number] Stat Exams 06/13/20 22:44 Completed CV echo complete* [id number] Routine Ultrasound 06/14/20 09:38 Completed Labs from last 24 hours 06/13/20 06/13/20 22:45 22:45 Estimat Average Gl ucose 180 Hemoglobin A1c 7.9 H Triglycerides 182 H Cholesterol 227 H LDL Cholesterol, C alc 157 H HDL Cholesterol 34 L LDL/HDL Ratio 4.62 H Cholesterol/HDL Ra yesi 6.68 H Vitamin B12 529 Vitals: Last Vital Signs Temp 97.5 F L 06/15/20 07:37 Pulse 60 06/15/20 07:37 Resp 20 H 06/15/20 07:37 BP 150/89 06/15/20 07:37 Pulse Ox 96 06/15/20 07:37 Discharge Plan Discharge Patient Disposition: Home Condition: Stable Prescriptions: New aspirin 81 mg Tablet,Delayed Release (Dr/Ec) 81 mg PO DAILY Qty: 30 RF: 0 atorvastatin 40 mg Tablet 40 mg PO BEDTIME Qty: 30 RF: 0 Continued Benadryl 25 mg Capsule 25 mg PO Q6H PRN (Reason: Allergy Symptoms) RF: 0 Claritin 10 mg Tablet 10 mg PO DAILY PRN (Reason: Allergy Symptoms) RF: 0 Discharge Orders: Discharge Order (Routine); Ordered 06/15/20 Ordered By: Sukhjinder Douglas Referrals: Naida Xavier MD [Physician] - 1 week Ryland Bennett DO [Physician] - 1-3 days (This coming Tuesday.) Discharge Diet: Usual diet Discharge Activity: Increase activity as tolerated Activity Restrictions/Additional Instructions: Please call your doctor or present to emergency department if your condition worsens or you develop diarrhea, lightheadedness, fatigue or see blood in your stool or black stool. Please discuss with your doctor to consider 30-day event monitor as we have discussed. Please follow-up with Dr. Xavier for further evaluation and treatment. Please call Dr. Bennett's office on Tuesday to set up an appointment for Tuesday. Dr. Bennett is aware and was planning to see you on Tuesday. Discharge Attestations Time Spent in Discharge Care*: greater than 30 min Quality Metrics Clinical Quality Measures During this hospital stay, did patient experience: Stroke Contraindication to Antithrombotic: Antithrombotic prescribed Contraindication to Anticoagulation: Other Contraindication to Statin: Statin prescribed Coding Level of Care Code Acute Bpm Architect for g Fwd Diagnoses TIA (transient ischemic attack) G45.9 Cervical radiculopathy due to degenerative joint disease of spine M47.22
[2020-06-15] MEDS: aspirin 81 mg EC Tablet PO (08:57)
--- NOTE | 2020-06-15 10:29 | PC.NURSE ---
Prescriptions called to [facility].
[2020-06-15 10:55] VITALS: BP 150/89; PULSE 60; RESP 20; TEMP 36.4; O2SAT 96
== END 2020-06-15 10:56 | disposition home or self-care (01) ==
LOC: ER 22:44 → MEDSURG 06-14 02:12
PROVIDERS: Admitting Provider Internal Medicine; Emergency Provider Emergency Medicine; Visit Provider Internal Medicine
DX: G45.9 Transient cerebral ischemic attack, unspecified (principal); M47.22 Other spondylosis with radiculopathy, cervical region; Z82.49 Family history of ischemic heart disease and other diseases of the circulatory system
CPT/HCPCS: 12345; 70450; 70496; 70498; 71045; 80053; 80061; 81003; 82607; 83036; 83735; 84484; 85025; 93005; 93306; 96372; 96374; 99283; 99285; G0378; J1650; J2405; J7030; Q9967

== ENCOUNTER 2020-06-26 08:22 | Outpatient (CLI) | payer BC, SELFPAY ==
--- NOTE | 2020-06-26 08:45 | MR_ITS ---
WS: [id number] MRI THORACIC SPINE WITHOUT CONTRAST TECHNIQUE: Sagittal T1, T2 and STIR imaging. Axial T2 imaging. Noncontrast imaging obtained. CLINICAL INFORMATION: M54.9 - Dorsalgia, unspecified COMPARISON: None. FINDINGS: Mild thoracic kyphosis. No acute compression. No high-grade central canal narrowing. Cord signal is n ormal. Normal CSF pulsation artifact in the spinal canal. Tiny right pericentral protrusion T7-T8. Tiny left pericentral protrusion T9-T10. No significant cent ral canal stenosis. Moderate facet arthropathy in the lower thoracic spine. Normal visualized thoraci c aorta. Adrenal glands are normal. MR/MR thoracic spin wo con* [id number] IMPRESSION: 1. Mild thoracic kyphosis. No acute compression. No high-grade central canal s tenosis. 2. Minimal chronic anterior wedging in the mid thoracic spine at T7 and T9. 3. Tiny right pericentral protrusion T7-T8 and tiny left pericentral protrusio n at T9-T10 without significant spinal canal narrowing. 4. Moderate facet arthropathy in the lower thoracic spine. 5. Mild left T9-T10 and right T10-T11 foraminal narrowing.
--- NOTE | 2020-06-26 09:30 | MR_ITS ---
WS: [id number] MRI CERVICAL SPINE NONCONTRAST TECHNIQUE: Sagittal T1, T2 and STIR imaging. Axial T2, gradient, and fiesta imaging. CLINICAL INFORMATION: M47.22 - Other spondylosis with radiculopathy, cervical region COMPARISON: None. FINDINGS: Straightening of the normal cervical lordosis. Cord signal is normal. Mild disc osteophyte complexes at C4-C6. C2-C3: Asymmetric moderate right facet arthropathy. Mild bilateral foraminal narrowing. Spinal canal is patent. C3-C4: Disc osteophyte complex with tiny central protrusion. Mild central canal stenosis. Slight cont act of the cervical cord. Moderate left and mild right bony foraminal narrowing. C4-C5: Disc osteophyte complex with a tiny central shallow protrusion. Mild left foraminal narrowing. Moderate facet arthropathy. Mild central canal stenosis. C5-C6: Disc osteophyte complex with endplate ridging. Shallow left pericentral disc osteophyte protru louise with mild to moderate central canal stenosis. Slight contact of the cervical cord. Severe left a nd moderate right bony foraminal narrowing. C6-C7: Disc osteophytic ridging. Mild central canal stenosis. Moderate bilateral bony foraminal narro wing. C7-T1: Spinal canal and foramen are patent. Visualized brain stem structures: Normal. Prevertebral soft tissues: Normal. MR/MR cervical spin wo con* [id number] IMPRESSION: 1. Straightening of the normal cervical lordosis. Cord signal is normal. 2. Mild to moderate central canal stenosis due to small disc osteophyte comple xes at C3-C4, C4-C5, C5-C6 and C6-C7. This is worse at C5-C6. 3. Left pericentral disc osteophyte protrusion C5-C6 with slight impingement o n the left ventral cervical cord with severe left bony foraminal narrowing. Rec ommend correlation for left C6 nerve root symptoms. 4. Otherwise mild to moderate bony foraminal left C3-C4, left C4-C5, and bilat eral C6-7.
== END 2020-06-26 08:23 | disposition home or self-care (01) ==
LOC: RADSHAW 08:24
PROVIDERS: PCP Internal Medicine; Visit Provider Orthopaedic Surgery
DX: M47.22 Other spondylosis with radiculopathy, cervical region (principal); M25.78 Osteophyte, vertebrae; M48.02 Spinal stenosis, cervical region; M40.294 Other kyphosis, thoracic region; M48.54XA Collapsed vertebra, not elsewhere classified, thoracic region, initial encounter for fracture; M51.24 Other intervertebral disc displacement, thoracic region; M47.814 Spondylosis without myelopathy or radiculopathy, thoracic region
CPT/HCPCS: 72141; 72146

== ENCOUNTER → 2020-07-07 09:29 | Outpatient (BNVA) | payer BC, SELFPAY | PROVIDERS: PCP Internal Medicine; Visit Provider Nurse Practitioner | DX: R29.90 Unspecified symptoms and signs involving the nervous system (principal); I99.8 Other disorder of circulatory system; M47.22 Other spondylosis with radiculopathy, cervical region | CPT/HCPCS: 99205 ==

== ENCOUNTER → 2020-07-10 08:44 | Outpatient (BNVA) | payer BC, SELFPAY | PROVIDERS: PCP Internal Medicine; Visit Provider Anesthesiology Pain Medicine | DX: M47.22 Other spondylosis with radiculopathy, cervical region (principal); M47.812 Spondylosis without myelopathy or radiculopathy, cervical region; M51.9 Unspecified thoracic, thoracolumbar and lumbosacral intervertebral disc disorder; M54.9 Dorsalgia, unspecified | CPT/HCPCS: 99205 ==

== ENCOUNTER 2020-07-23 07:55 | Outpatient (CLI) | payer BC, SELFPAY ==
--- NOTE | 2020-07-23 08:00 | MR_ITS ---
WS: [id number] MRI HEAD WITH CONTRAST TECHNIQUE: Sagittal T1, T2 axial, T2 axial FLAIR, axial susceptibility weighted imaging, axial diffus ion weighted images, and coronal T2 images were obtained. Pre and post-T1 axial and post T1 coronal i mages. ADC and FSPGR images. CLINICAL INFORMATION: I63.9 - Cerebral infarction, unspecified COMPARISON: CT June 13, 2020 FINDINGS: No evidence of restricted diffusion to suggest acute ischemia. Ventricular system and basal cisterns are patent. Mild parenchymal volume loss. Normal posterior fossa. Normal vascular flow voids at the skull base. No extra-axial fluid collections. No evidence of mass or mass effect. Multiple tiny chron ic appearing lacunar infarcts involving the right thalamus. Retention cysts maxillary sinuses. Mild mucosal thickening left maxillary sinus. No hemosiderin on susceptibly weighted images. No abnormal gadolinium enhancement. Normal optic chias m and pituitary infundibulum. Normal dural venous sinuses. Normal cavernous sinuses and Meckel's cave . Mild symmetric atrophy involving the temporal lobes and hippocampal formations. MR/MR head wo/w con [id number] IMPRESSION: 1. No evidence of restricted diffusion to suggest acute ischemia. 2. Tiny lacunar infarcts involving the right thalamus. 3. Mild parenchymal volume loss. 4. Retention cysts in the maxillary sinuses. Mucosal thickening left maxillary sinus. 5. No hemosiderin on susceptibly weighted images. 6. No abnormal gadolinium enhancement.
== END 2020-07-23 07:56 | disposition home or self-care (01) ==
LOC: RADSHAW 07:57
PROVIDERS: PCP Internal Medicine; Visit Provider Nurse Practitioner
DX: I63.9 Cerebral infarction, unspecified (principal); M27.40 Unspecified cyst of jaw; I63.81 Other cerebral infarction due to occlusion or stenosis of small artery
CPT/HCPCS: 70553; A9579

== ENCOUNTER → 2020-07-29 10:19 | Outpatient (BNVA) | payer BC, SELFPAY | PROVIDERS: PCP Internal Medicine; Visit Provider Nurse Practitioner | DX: R20.0 Anesthesia of skin (principal); M47.812 Spondylosis without myelopathy or radiculopathy, cervical region | CPT/HCPCS: 95910 ==

== ENCOUNTER → 2020-08-04 10:07 | Outpatient (BNVA) | payer BC, SELFPAY | PROVIDERS: PCP Internal Medicine; Referring Provider Nurse Practitioner; Visit Provider Specialist | DX: M47.22 Other spondylosis with radiculopathy, cervical region (principal); R20.0 Anesthesia of skin; I69.398 Other sequelae of cerebral infarction; R20.8 Other disturbances of skin sensation | CPT/HCPCS: 95861; 99213; 99214 ==

== ENCOUNTER 2020-08-08 08:35 | Outpatient (RCR) | payer BC, SELFPAY | END 2020-08-24 23:59 | disposition home or self-care (01) | LOC: SPT 08:35 | PROVIDERS: PCP Internal Medicine; Referring Provider Orthopaedic Surgery; Visit Provider Orthopaedic Surgery | DX: M47.20 Other spondylosis with radiculopathy, site unspecified (principal) | CPT/HCPCS: 97110; 97161 ==

== ENCOUNTER → 2020-09-02 14:12 | Outpatient (BNVA) | payer BC, SELFPAY | PROVIDERS: PCP Internal Medicine; Visit Provider Orthopaedic Surgery | DX: M47.22 Other spondylosis with radiculopathy, cervical region (principal) | CPT/HCPCS: 72050 ==

== ENCOUNTER 2022-06-15 08:38 | Outpatient (RCR) | payer BC, SELFPAY | END 2022-06-26 23:59 | disposition home or self-care (01) | LOC: SPT 08:38 | PROVIDERS: PCP Internal Medicine; Visit Provider Psychiatry & Neurology Neurology | DX: I63.531 Cerebral infarction due to unspecified occlusion or stenosis of right posterior cerebral artery (principal); R20.0 Anesthesia of skin | CPT/HCPCS: 97112; 97161 ==

== ENCOUNTER 2022-06-27 06:00 | Outpatient (RCR) | payer BC, SELFPAY | END 2022-07-27 23:59 | disposition home or self-care (01) | LOC: SPT 06:00 | PROVIDERS: PCP Internal Medicine; Visit Provider Psychiatry & Neurology Neurology | DX: I63.531 Cerebral infarction due to unspecified occlusion or stenosis of right posterior cerebral artery (principal); R20.0 Anesthesia of skin | CPT/HCPCS: 97110; 97112 ==

== ENCOUNTER 2022-07-28 06:00 | Outpatient (RCR) | payer BC, SELFPAY | END 2022-08-24 23:59 | disposition home or self-care (01) | LOC: SPT 06:00 | PROVIDERS: PCP Internal Medicine; Visit Provider Psychiatry & Neurology Neurology | DX: R20.0 Anesthesia of skin (principal); I63.531 Cerebral infarction due to unspecified occlusion or stenosis of right posterior cerebral artery | CPT/HCPCS: 97110; 97112; 97530 ==

== ENCOUNTER 2022-08-25 06:00 | Outpatient (RCR) | payer BC, SELFPAY | END 2022-09-01 23:59 | disposition home or self-care (01) | LOC: SPT 06:00 | PROVIDERS: PCP Internal Medicine; Visit Provider Psychiatry & Neurology Neurology | DX: I63.531 Cerebral infarction due to unspecified occlusion or stenosis of right posterior cerebral artery (principal) | CPT/HCPCS: 97110 ==